=== PATIENT | female | born 1945 | race Caucasian/White ===

== ENCOUNTER 2019-11-25 20:31 | Emergency (ER) | payer MEDICARE, OTHER, SELFPAY ==
[2019-11-25 20:32] VITALS: BP 148/60; PULSE 77; RESP 16; TEMP 36.8; O2SAT 97; BMI 28.4
--- NOTE | 2019-11-25 20:54 | US_ITS ---
STUDY: VENOUS DOPPLER ULTRASOUND - RIGHT LOWER EXTREMITY REASON FOR EXAM: Female, 74 years old. RT FOOT SWELLING X 1 MONTH TECHNIQUE: Ultrasound evaluation of the deep vein system to include bright-scale imaging and compression was performed. Bright-scale imaging and Doppler sonographic evaluation, including duplex spectral analysis and qualitative color flow sonography, was performed. COMPARISON: None. FINDINGS: Common Femoral Vein: Normal compression, spontaneity and augmentation. Normal color Doppler. Common Femoral Vein/Greater Saphenous Junction: Normal compression. No internal echoes. Deep Femoral Vein: Not imaged Femoral Proximal: Normal compression. No internal echoes. Femoral Middle: Normal compression, spontaneity and augmentation. Normal color Doppler. Femoral Distal: Normal compression. No internal echoes. Popliteal Vein: Normal compression, spontaneity and augmentation. Normal color Doppler. Posterior Tibial Vein: Normal compression. No internal echoes. Peroneal Vein: Normal compression. No internal echoes. US/Venous Duplex Imag/Limited/Uni IMPRESSION: Normal venous Doppler ultrasound of the lower extremity. There is no evidence of DVT of the right lower extremity. Electronically Signed: Kedar Osei MD at 21:43 EDT , Service support ,
--- NOTE | 2019-11-25 20:54 | ED.DCSUM_ITS ---
- ER Visit Summary Date of Service: 11/25/19 Chief Complaint: [Right ankle swelling] History of Present Illness: The patient is a 74 F [presents to the emergency department with swelling to the right ankle that started 2 weeks ago. Patient denies any trauma. Patient is visiting friends from [place] and has been here since August. Patient denies any chest pain or shortness of breath. Today she was worried about the possibility of a blood clot. She has no history of PE or DVT. Patient states the swelling typically is better when she first wakes up and worsens throughout the day. She denies fever or recent illness. She has no real medical history.] Physical Examination: [HEENT-PERRLA, EOMI. Cranial nerves II through XII grossly intact. TMs clear. Mucous membranes moist. No adenopathy. Cardiovascular-regular rate and rhythm without murmur or ectopy Lungs-clear to auscultation, chest wall stable without crepitus or subcu emphysema Abdomen-normoactive bowel sounds, soft, nontender, no rebound or rigidity, no peritoneal signs. Extremities-intact ?4, normal range of motion, normal pulses. Right ankle- patient has some mild diffuse swelling over the medial lateral malleolus. No ropes or cords palpated. There is no cellulitis noted. She is neurovascular intact distally. Normal pulses over the dorsal pedal and posterior tibial.] Test Results: [Venous duplex of the right ankle obtained was negative for DVT] Emergency Department Course and Treatment: [] Treatment Plan: [Patient advised to follow-up with primary care physician in 5 to 7 days. I suspect patient likely has venous insufficiency and recommended compression stockings or MAURICIO hose.] Disposition: [] Discharged home in stable condition Impression: [Right ankle edema] This note was generated with [employer] dictation software. It may contain incorrect words, spelling, and punctuation that were not noted in review of the chart prior to signing ED Disposition - Plan for ED Patient: Referrals: NOT,DEFINED [NON-STAFF] -
--- NOTE | 2019-11-25 22:04 | ED.DEP ---
ED Disposition - Plan for ED Patient: Instructions: ED Peripheral Edema, Unilateral Referrals: NOT,DEFINED [NON-STAFF] - 3-5 Days
== END 2019-11-25 22:12 | disposition home or self-care (01) ==
LOC: ED 21:14
PROVIDERS: Emergency Provider Emergency Medicine
DX: R60.0 Localized edema (principal)
CPT/HCPCS: 93971; 99282